=== PATIENT | female | born 1955 | race Caucasian/White ===

== ENCOUNTER 2025-01-30 11:06 | Outpatient (CLI) | payer MEDICARE, SELFPAY ==
[2025-01-30 11:35] LABS: Basophils Absolute Auto 0.04 K/mm3 (0.00-0.10); Basophils Percent Auto 0.4 % (0.0-1.0); Eosinophils Absolute Auto 0.07 K/mm3 (0.02-0.50); Eosinophils Percent Auto 0.7 % (1.0-6.0); Hematocrit 47.3 % (35.0-42.0); Immature Granulocyte Absolute 0.05 K/mm3 (0.00-0.00); Immature Granulocyte Percent A 0.5 % (0.0-0.0); Lymphocytes Absolute Auto 1.51 K/mm3 (1.10-4.50); Lymphocytes Percent Auto 15.9 % (18.0-42.0); Mean Corpuscular HGB Conc 31.7 g/dL (32-36); Mean Corpuscular Hemoglobin 27.8 pg (27.0-31.0); Mean Corpuscular Volume 87.8 fL (78.0-102.0); Mean Platelet Volume 10.6 fl (9.2-11.8); Monocytes Absolute Auto 0.65 K/mm3 (0.10-0.90); Monocytes Percent Auto 6.8 % (2.0-11.0); Neutrophils Absolute Auto 7.18 K/mm3 (1.70-7.20); Neutrophils Percent Auto 75.7 % (50.0-70.0); Platelet Count Result 283 K/mm3 (150-420); Red Blood Count 5.39 M/mm3 (4.20-5.40); Red Cell Distribution Width 14.3 % (11.6-14.4); White Blood Count 9.5 K/mm3 (4.8-10.8)
[2025-01-30 12:46] LABS: Alanine Aminotransferase 25 U/L (14-59); Albumin Level 4.1 g/dL (3.4-5.0); Alkaline Phosphatase 78 U/L (46-116); Anion Gap 8 mmol/L (4-12); Aspartate Amino Transferase 16 U/L (15-37); Bilirubin,Total 0.4 mg/dL (0.00-1.00); Blood Urea Nitrogen 9 mg/dL (7-18); Calcium 9.9 mg/dL (8.5-10.1); Carbon Dioxide 29 mmol/L (21-32); Chloride 105 mmol/L (98-108); Cholesterol 247 mg/dL (0-200); Estimated Glomerular Filt Rate 41; Folic Acid 8.3 ng/mL (8.6->20); Glucose 90 mg/dL (70-99); HDL Direct 70 mg/dL (40-60); LDL Cholesterol Calculated 149 mg/dL (<130); Osmolality Calculated 292 mOsm/kg (285-295); Potassium 4.5 mmol/L (3.5-5.1); Sodium 142 mmol/L (136-145); Thyroid Stimulating Hormone Reflex 0.53 u/IU/mL (0.36-3.74); Total Protein 7.2 g/dL (6.4-8.2); Triglycerides 138 mg/dL (0-150); Vitamin B12 263 pg/mL (193-986)
[2025-01-31 23:02] LABS: Arsenic, Blood <10 mcg/L (<23); Mercury, Blood <5 mcg/L (<OR=10)
[2025-02-02 10:49] LABS: Lead, Blood 1.8 mcg/dL (<3.5)
[2025-02-03 15:32] LABS: Vitamin D 1,25 (OH)2 Total 44 pg/mL (18-72); Vitamin D2 1,25 (OH)2 <8 pg/mL; Vitamin D3 1,25 (OH)2 44 pg/mL
[2025-02-13 16:21] LABS: Collection Sample VENOUS
== END 2025-01-30 11:07 | disposition home or self-care (01) ==
PROVIDERS: PCP Family Medicine; Visit Provider Family Medicine
DX: E03.9 Hypothyroidism, unspecified (principal); E53.8 Deficiency of other specified B group vitamins; F03.90 Unspecified dementia, unspecified severity, without behavioral disturbance, psychotic disturbance, mood disturbance, and anxiety; R71.8 Other abnormality of red blood cells; R27.9 Unspecified lack of coordination; N18.2 Chronic kidney disease, stage 2 (mild); E55.9 Vitamin D deficiency, unspecified; R19.7 Diarrhea, unspecified
CPT/HCPCS: 36415; 80053; 80061; 82175; 82607; 82652; 82746; 83655; 83825; 84443; 85025

== ENCOUNTER 2025-09-14 07:51 | Outpatient (CLI) | payer MEDICARE, SELFPAY ==
--- NOTE | ~2025-09-14 | CT_ITS ---
EXAMINATION: CT brain wo/w con DATE: 09/14/2025 09:48 INDICATION: Mild cognitive impairment TECHNIQUE: Computed tomography (CT) of the head was performed without and with 75 mL Omnipaque-350 intravenous contrast. Sagittal and coronal reconstructions were performed. The mA was adjusted according to patient size. Iterative reconstruction technique was employed. The dose-length product was 605.33 mGy-cm. COMPARISON: None FINDINGS: No acute intracranial hemorrhage, acute infarction or abnormal extra axial fluid collection. There is mild scattered white matter hypoattenuation consistent with chronic small vessel ischemic disease. Symmetric prominence of the sulci consistent with mild age-appropriate diffuse cerebral volume loss. Ventricles are normal and symmetric. No mass/mass effect. No abnormally enhancing brain lesions. Changes of bilateral intraocular lens replacement. Bilateral retinal calcifications. The mastoid air cells and middle ear cavities are clear. Mucous retention cyst in the posterior most left ethmoid air cell. Intracranial calcified cerebral atherosclerosis is noted without evident hemodynamically significant stenosis. IMPRESSION: 1. No acute intracranial process or abnormally enhancing brain lesions. 2. Age-related changes including mild diffuse volume loss and mild scattered white matter hypoattenuation consistent with chronic small vessel ischemic disease. Reviewed, dictated and finalized at location A. L DIPPER IMPRESSION: 1. No acute intracranial process or abnormally enhancing brain lesions. 2. Age-related changes including mild diffuse volume loss and mild scattered wh ite matter hypoattenuation consistent with chronic small vessel ischemic diseas e.
[2025-09-14 09:01] LABS: Estimated Glomerular Filt Rate 43
[2025-09-18 03:07] LABS: A -- Beta-amyloid 42/40 Ratio 0.147 (>0.102); Beta-amyloid 40 122.73 pg/mL (.); Beta-amyloid 42 18.06 pg/mL (.); N -- NfL, Plasma 3.84 pg/mL (0.00-6.04); T -- p-tau181 0.85 pg/mL (0.00-0.97)
== END 2025-09-14 07:52 | disposition home or self-care (01) ==
PROVIDERS: PCP Family Medicine; Visit Provider Psychiatry & Neurology Neurology
DX: G31.84 Mild cognitive impairment of uncertain or unknown etiology (principal); R27.0 Ataxia, unspecified
CPT/HCPCS: 70470; 83520; Q9967